=== PATIENT | female | born 1950 | race Caucasian/White ===

== ENCOUNTER 2016-06-28 06:50 | Day surgery (SDC) | payer BC ==
[~2016-06-28 06:50] MED LIST: Lactated Ringers 1,000 ML IV SCH; Sodium Chloride 0.9% 10 ML Syringe FLUSH PRN
[2016-06-28] MEDS ORDERED: fentaNYL 100 MCG/2 ML SDV IV ONE (08:00)
[2016-06-28] MEDS ORDERED: Lidocaine 2% 100 MG/5 ML Syringe IVPUSH ONE (08:00)
[2016-06-28] MEDS ORDERED: Ondansetron 4 MG/2 ML SDV IVPUSH ONE (08:00)
[2016-06-28] MEDS ORDERED: Propofol 200 MG/20 ML SDV IV ONE (08:00)
[2016-06-28] MEDS ORDERED: Labetalol 100 MG/20 ML MDV IV ONE (08:00)
[2016-06-28] MEDS ORDERED: Midazolam 1 MG/ML 2 ML SDV IV ONE (08:00)
--- NOTE | 2016-06-28 08:21 | PCM.OPNOTE ---
- General Post-Op/Procedure Note Date of Surgery/Procedure: 06/28/16 Operative Procedure(s): egd with bx Findings: large hiatal hernia gastritis short esophagus gastric polyp Pre Op Diagnosis: epigastric abd pain. heme + stools Post-Op Diagnosis: large hiatal hernia. gastritis. short esophagus. gastric polyp Anesthesia Technique: MAC Primary Surgeon: Raoul Kaminski Anesthesia Provider: Anjali Gruber Pathology: stomach Complications: None Condition: Good Free Text/Narrative:: see dictation
[2016-06-28 09:54] VITALS: BP 117/67
--- NOTE | 2016-06-28 10:37 | OR ---
DATE OF OPERATION: 06/28/2016 SURGEON: Raoul Kaminski MD PROCEDURE PERFORMED: Esophagogastroduodenoscopy with cold forceps biopsy. PREOPERATIVE DIAGNOSIS: Gastritis with hemorrhage. POSTOPERATIVE DIAGNOSIS: Gastritis, fundic gland hyperplasia, large hiatal hernia, and short esophagus. INDICATIONS FOR PROCEDURE: This is a 65-year-old white female, who is referred with a history of epigastric discomfort and heme-positive stools. She was offered and accepted an EGD. DESCRIPTION OF OPERATION: After an excellent IV sedation was administered, the bite block was inserted. The flexible endoscope was passed without difficulty down the patient's esophagus and into the stomach. The stomach was insufflated. The scope was passed through the pylorus to the second portion of the duodenum and slowly withdrawn. The following findings are noted. The duodenum is unremarkable. The stomach reveals a large hiatal hernia with approximately half of the stomach in the chest. Linear erythema was noted in the intraabdominal portion of the stomach. Biopsies were taken. In the thoracic portion of the stomach and fundic gland, hyperplasia was noted. The GE junction measured at 25 cm. Esophageal exam was unremarkable except for a short length. Stomach was deflated. Scope was removed. Photos were taken as well as biopsies of the stomach. /[id number] /MODL
--- NOTE | 2016-06-28 11:32 | PREOP ---
ADMISSION DATE: 06/28/2016 CHIEF COMPLAINT: Epigastric pain with heme-positive stools. HISTORY OF PRESENT ILLNESS: This is a 65-year-old white female, referred with a history of epigastric and mid back pain between the clavicles. It has been exacerbated recently with a trip to [place] and was relatively intermittent in nature. Recently, she has been noted to have some heme-positive stools. She experienced worsening heartburn as well. This is despite taking a PPI, as well as increasing her antacid intake. MEDICATIONS: 1. Toprol-XL 50 mg SR daily. 2. Lisinopril and hydrochlorothiazide 10/12.5 mg 1 per day. 3. Restasis 0.05% ophthalmic emulsion 1 drop in each eye twice a day. 4. Glucosamine/chondroitin. 5. Shaklee Santa-Karely Gold. 6. Calcium carbonate. 7. Omeprazole 20 mg one time per day. ALLERGIES: She has an allergy to doxycycline, Darvocet, and Levaquin. PAST MEDICAL HISTORY: Significant for diverticulosis, hypertension, nodular goiter, other chronic pulmonary heart disease, diaphragmatic hernia, hyperlipidemia, carpal tunnel syndrome, conductive hearing loss, aortic valve disorder, rotator cuff issues, nontraumatic rupture of the tendons of the biceps, vestibular neuritis, degenerative arthritis of the thumb, trigger thumb, palpitations, pneumonia, dry eye syndrome, and supraventricular tachycardia. PAST SURGICAL HISTORY: Significant for appendectomy, arthroscopy, x3, carpal tunnel release on the right hand, carpal tunnel release on the left hand, cholecystectomy, hysterectomy, left total knee, rotator cuff surgery, spine fusion x2, stapedectomy, and hernia repair. FAMILY HISTORY: Significant for coronary artery disease, hyperlipidemia, and colon polyps. SOCIAL HISTORY: She is with 3 children. She works as a speech pathologist. She used to smoke and has an occasional drink. REVIEW OF SYSTEMS: CONSTITUTIONAL: Negative. HEENT: Eyes are negative. Hearing is negative. RESPIRATORY: Negative. CARDIOVASCULAR: Negative. GASTROINTESTINAL: Positive for abdominal pain. GENITOURINARY: Negative. MUSCULOSKELETAL: Negative. NEUROLOGIC: Negative. PHYSICAL EXAMINATION: VITAL SIGNS: Reviewed. She is stable and afebrile. HEENT: Head is normocephalic and atraumatic. The right and left ears are normal. CARDIOVASCULAR: Normal rate and rhythm with normal heart sounds. PULMONARY: Normal effort. Breathing sounds are normal. ABDOMEN: Abdominal exam reveals normal bowel sounds. Some tenderness in the epigastric area. ASSESSMENT: Probable acute gastritis with hemorrhage. PLAN/INFORMED CONSENT: EGD. Procedure and risks explained to the patient to include bleeding, infection, and perforation. She expresses understanding. She asked us to proceed. /[id number] /MODL
== END 2016-06-28 09:51 | disposition home or self-care (01) ==
LOC: FB.SDS 06:50
PROVIDERS: ATTEND Surgery
DX: K29.50 Unspecified chronic gastritis without bleeding (principal); K44.9 Diaphragmatic hernia without obstruction or gangrene; Z88.1 Allergy status to other antibiotic agents; Z88.8 Allergy status to other drugs, medicaments and biological substances; Z79.899 Other long term (current) drug therapy; I10 Essential (primary) hypertension; E78.5 Hyperlipidemia, unspecified; Z90.49 Acquired absence of other specified parts of digestive tract; Z98.890 Other specified postprocedural states; Z90.710 Acquired absence of both cervix and uterus; Z96.652 Presence of left artificial knee joint; Z87.891 Personal history of nicotine dependence
CPT/HCPCS: 43239; 88305; 88342; J2250; J2405; J2704; J3010; J7120

== ENCOUNTER 2021-04-29 09:25 | Day surgery (SDC) | payer MEDICARE, BC ==
[2021-04-29] MEDS ORDERED: Lidocaine 1% PF 2 ML SDV INJECT ONE (09:26)
[2021-04-29] MEDS ORDERED: Propofol 200 MG/20 ML SDV IV ONE (09:26)
[2021-04-29] MEDS ORDERED: Lactated Ringers 1,000 ML IV ONE (09:26)
[2021-04-29 13:34] VITALS: BP 164/77; PULSE 60
== END 2021-04-29 13:30 | disposition home or self-care (01) ==
LOC: FB.SDS 09:25
PROVIDERS: ATTEND Surgery
DX: Z12.11 Encounter for screening for malignant neoplasm of colon (principal); K57.30 Diverticulosis of large intestine without perforation or abscess without bleeding; I10 Essential (primary) hypertension; K21.9 Gastro-esophageal reflux disease without esophagitis; Z80.0 Family history of malignant neoplasm of digestive organs; Z86.010 Personal history of colon polyps; Z88.8 Allergy status to other drugs, medicaments and biological substances; Z88.2 Allergy status to sulfonamides; Z79.899 Other long term (current) drug therapy; Z90.49 Acquired absence of other specified parts of digestive tract; Z98.890 Other specified postprocedural states
CPT/HCPCS: 00811; G0105; J2704; J7120

== ENCOUNTER 2021-07-16 06:24 | Day surgery (SDC) | payer MEDICARE, BC ==
[2021-07-16] MEDS ORDERED: Lidocaine 2% 100 MG/5 ML Syringe IVPUSH ONE (06:25)
[2021-07-16] MEDS ORDERED: Propofol 200 MG/20 ML SDV IV ONE (06:25)
[2021-07-16] MEDS ORDERED: Midazolam 1 MG/ML 2 ML SDV IV ONE (06:25)
[2021-07-16 13:08] VITALS: BP 151/72; PULSE 65
== END 2021-07-16 08:50 | disposition home or self-care (01) ==
LOC: FB.SDS 06:24
PROVIDERS: ATTEND Surgery
DX: K31.89 Other diseases of stomach and duodenum (principal); K29.70 Gastritis, unspecified, without bleeding; K44.9 Diaphragmatic hernia without obstruction or gangrene; K29.80 Duodenitis without bleeding; K22.89 Other specified disease of esophagus; H54.7 Unspecified visual loss; E78.00 Pure hypercholesterolemia, unspecified; I10 Essential (primary) hypertension; Z88.1 Allergy status to other antibiotic agents; Z88.5 Allergy status to narcotic agent; Z88.2 Allergy status to sulfonamides; Z91.048 Other nonmedicinal substance allergy status; Z98.890 Other specified postprocedural states; Z79.899 Other long term (current) drug therapy; Z86.718 Personal history of other venous thrombosis and embolism
CPT/HCPCS: 00731-QZ; 88305; 88342; J2250; J2704; J7120

== ENCOUNTER 2022-04-26 08:43 | Emergency (ER) | payer MEDICARE, BC ==
[2022-04-26] MEDS ORDERED: Sodium Chloride 0.9% 10 ML Syringe FLUSH PRN (09:12)
[2022-04-26] MEDS ORDERED: Pantoprazole 40 MG Vial IVPUSH STA (09:14)
[2022-04-26] MEDS ORDERED: Metoclopramide 10 MG/2 ML SDV IVPUSH ONE (09:14)
[2022-04-26] MEDS ORDERED: Sodium Chloride 0.9% 1,000 ML IV SCH (09:15)
[2022-04-26 09:26] LABS: ESTIMATED GFR 79 mL/min (>60)
[2022-04-26] MEDS ORDERED: Iopamidol 755 Mg/ML 100 ML Bottle IV ONE (09:45)
[2022-04-26] MEDS ORDERED: Potassium Chloride 20 MEQ Tab.ER PO ONE (10:06)
[2022-04-26] MEDS ORDERED: Ondansetron 4 MG/2 ML SDV IVPUSH ONE (10:09)
[2022-04-26] MEDS ORDERED: hydrOXYzine HCl 50 MG/ML SDV IM ONE (11:42)
[2022-04-26] MEDS ORDERED: Aspirin 81 MG Tab.Chew PO STA (13:11)
[2022-04-26 14:55] VITALS: BP 177/93; PULSE 104
== END 2022-04-26 13:19 | disposition home or self-care (01) ==
LOC: FB.ED 08:43
DX: N39.0 Urinary tract infection, site not specified (principal); K29.70 Gastritis, unspecified, without bleeding; E87.6 Hypokalemia; E78.00 Pure hypercholesterolemia, unspecified; I27.20 Pulmonary hypertension, unspecified; Z88.1 Allergy status to other antibiotic agents; Z88.2 Allergy status to sulfonamides; Z88.8 Allergy status to other drugs, medicaments and biological substances; Z79.899 Other long term (current) drug therapy
CPT/HCPCS: 36415; 74177; 80053; 81001; 82150; 83690; 84484; 85025; 96361; 96372; 96374; 96375; 99284-25; A9270-GY; C9113; J2405; J2765; J3410; J3490; J7030; Q9967